=== PATIENT | male | born 1975 | race Caucasian/White ===

== ENCOUNTER 2018-06-05 15:34 | Emergency (ER) | payer OTHER ==
--- NOTE | 2018-06-05 15:55 | EDPHY ---
H & P Time Seen by Provider: 06/05/18 15:41 HPI/ROS: Chief complaint. First-time seizure HPI. 42-year-old male presents emergency department with first-time seizure. Tells me got off work today and was shopping with his uncle and then apparently witnesses described a generalized tonic-clonic seizure. He has not had any recent head injury. He has had no fever cough, chest pain, shortness of breath , abdominal pain. History of alcoholism and had been drinking heavily. He tells me last drink was 2 days ago. He also tells me he did not bite his tongue. He denies other drugs ROS 10 systems were reviewed and negative with the exception of the elements mentioned in the history of present illness Past Medical/Surgical History: Dyslipidemia, alcoholism Social History: Single, daily smoker, last alcohol 2 days ago Smoking Status: Current every day smoker Physical Exam: General Appearance: Alert well-developed male mild distress. Vital signs significant for blood pressure 160/118 and heart rate 114 Eyes: Pupils equal and round no pallor or injection. ENT, no evidence of trauma to the head. Patient bit his tongue left anterior edge. Respiratory: There are no retractions, lungs are clear to auscultation. Cardiovascular: Regular rate and rhythm. Gastrointestinal: Abdomen is soft and nontender, no masses, bowel sounds normal. Neurological: Awake and alert, sensory and motor exams grossly normal. Tremulous Skin: Warm and dry, no rashes. Musculoskeletal: Neck is supple nontender. Extremities symmetrical, full range of motion. Psychiatric: Patient is oriented X 3, there is no agitation. Constitutional: Initial Vital Signs Temperature (C) 37.2 C 06/05/18 15:34 Heart Rate 138 H 06/05/18 15:34 Respiratory Rate 16 06/05/18 15:34 Blood Pressure 160/118 H 06/05/18 15:34 O2 Sat (%) 95 06/05/18 15:34 O2 Delivery Mode Room Air Allergies/Adverse Reactions: No Known Allergies Allergy (Unverified 12/06/10 08:49) Home Medications: Medication Instructions Recorded Lipitor 20 mg (RX) 09/06/13 Medical Decision Making - Diagnostics EKG Interpretation: EKG interpreted by me shows sinus tachycardia normal interval and axis. QRS is normal no significant ST elevation or depression. No arrhythmia. The rate is 112 Imaging Results: Imaging Impressions Head CT 06/05/18 16:43 Impression: 1. Accelerated atrophy for a patient of this age, progressive since the previous study in 2013, consistent with a history of chronic alcoholism. 2. There is no acute intracranial abnormality identified on this unenhanced CT evaluation. If there is further clinical concern regarding the patient's symptoms, MR imaging is suggested, if not otherwise contraindicated. Findings were discussed with RAHEEM OSUNA MD at 17:12, on 06/05/2018. Noncontrast head CT reviewed by me and discussed with Dr. Kamara shows significant atrophy but no evidence of bleeding or tumor Procedures: IV normal saline. Ativan IV for tremulousness. Seizure precautions ED Course/Re-evaluation: Patient refuses head CT. He and I discussed risks and benefits of this up and concern for intracranial tumor in bleeding for first-time seizure. He expresses understanding and agreement but declines head CT Patient refuses EKG Re-evaluation at 4:40 p.m.. Patient's parents are now here. Patient agrees to EKG and head CT. Tremulous still present but improved Re-evaluation 5:40 p.m. Patient and his family and I have discussed imaging and lab results. Discussed treatment plan including importance of follow-up and further evaluation. He expresses understanding and agreement Re-evaluation again at 7:00 p.m.. Patient is better but still somewhat tachycardic. He insists on leaving and has pulled his IV out. He is here with his parents who will stay with the patient tonight. I have encouraged the patient to return at any point. He is aware that my plan was to continue management of his alcohol withdrawal symptoms until he was much improved. He expresses understanding and agreement Differential Diagnosis: I think the patient had alcohol withdrawal seizure. None evidence of intracranial bleeding, brain tumor, arrhythmia. - Data Points Laboratory Results: Laboratory Results 06/05/18 15:47 06/05/18 15:47 06/05/18 06/05/18 15:47 15:47 WBC 9.65 10^3/uL H 10^3/uL (3.80-9.50) RBC 4.82 10^6/uL 10^6/uL (4.40-6.38) Hgb 16.0 g/dL g/dL (13.7-17.5) Hct 46.2 % % (40.0-51.0) MCV 95.9 fL fL (81.5-99.8) MCH 33.2 pg pg (27.9-34.1) MCHC 34.6 g/dL g/dL (32.4-36.7) RDW 11.8 % % (11.5-15.2) Plt Count 125 10^3/uL L 10^3/uL (150-400) MPV 10.2 fL fL (8.7-11.7) Neut % (Auto) 78.4 % H % (39.3-74.2) Lymph % (Auto) 8.6 % L % (15.0-45.0) [place] % (Auto) 11.6 % % (4.5-13.0) Eos % (Auto) 0.1 % L % (0.6-7.6) Baso % (Auto) 1.0 % % (0.3-1.7) Nucleat RBC Rel Count 0.0 % % (0.0-0.2) Absolute Neuts (auto) 7.56 10^3/uL H 10^3/uL (1.70-6.50) Absolute Lymphs (auto) 0.83 10^3/uL L 10^3/uL (1.00-3.00) Absolute Monos (auto) 1.12 10^3/uL H 10^3/uL (0.30-0.80) Absolute Eos (auto) 0.01 10^3/uL L 10^3/uL (0.03-0.40) Absolute Basos (auto) 0.10 10^3/uL 10^3/uL (0.02-0.10) Absolute Nucleated RBC 0.00 10^3/uL 10^3/uL (0-0.01) Immature Gran % 0.3 % % (0.0-1.1) Immature Gran # 0.03 10^3/uL 10^3/uL (0.00-0.10) Sodium 134 mEq/L L mEq/L (135-145) Potassium 3.4 mEq/L L mEq/L (3.5-5.2) Chloride 94 mEq/L L mEq/L (97-110) Carbon Dioxide 18 mEq/l L mEq/l (22-31) Anion Gap 22 mEq/L H mEq/L (6-14) BUN 12 mg/dL mg/dL (7-23) Creatinine 1.1 mg/dL mg/dL (0.7-1.3) Estimated GFR > 60 Glucose 153 mg/dL H mg/dL (70-100) Calcium 9.2 mg/dL mg/dL (8.5-10.4) Medications Given: Discontinued Medications Chlordiazepoxide HCl (Librium) 25 mg PO EDNOW ONE Stop: 06/05/18 16:06 Last Admin: 06/05/18 16:37 Dose: 25 mg Sodium Chloride (Ns) 1,000 mls @ 0 mls/hr IV EDNOW ONE; Wide Open PRN Reason: Protocol Stop: 06/05/18 16:05 Last Admin: 06/05/18 16:36 Dose: 1,000 mls Sodium Chloride (Ns) 1,000 mls @ 0 mls/hr IV EDNOW ONE; Wide Open PRN Reason: Protocol Stop: 06/05/18 16:42 Last Admin: 06/05/18 16:58 Dose: 1,000 mls Sodium Chloride (Ns) 1,000 mls @ 0 mls/hr IV EDNOW ONE; Wide Open PRN Reason: Protocol Stop: 06/05/18 17:51 Last Admin: 06/05/18 18:10 Dose: 1,000 mls Lorazepam (Ativan Injection) 1 mg IVP EDNOW ONE Stop: 06/05/18 16:06 Last Admin: 06/05/18 16:35 Dose: 1 mg Lorazepam (Ativan Injection) 1 mg IVP EDNOW ONE Stop: 06/05/18 16:37 Last Admin: 06/05/18 16:58 Dose: 1 mg Lorazepam (Ativan Injection) 1 mg IVP EDNOW ONE Stop: 06/05/18 17:51 Last Admin: 06/05/18 18:10 Dose: 1 mg Departure - Departure Disposition: Home, Routine, Self-Care Clinical Impression: Alcohol abuse, Seizure Condition: Fair Instructions: Alcohol Withdrawal (ED) Additional Instructions: Return tonight for worsening symptoms or another seizure. No driving or other dangerous activity until evaluated by Neurology Recheck tomorrow in the ER if not improved Refrain from drinking further alcohol Referrals: Patient,NotPresent [Unknown] - As per Instructions Artemio Coates MD [Medical Doctor] - As per Instructions
[2018-06-05] MEDS ORDERED: NS 1,000 ML IV ONE ×3 (16:04→17:50)
[2018-06-05] MEDS ORDERED: LORazepam 2 MG/ML INJ IVP ONE ×3 (16:05→17:50)
[2018-06-05] MEDS ORDERED: chlordiazePOXIDE 25 MG CAP PO ONE (16:05)
[2018-06-05 16:19] LABS: PLATELET COUNT 125 10^3/uL (150-400)
[2018-06-05] MEDS ORDERED: LORazepam 2 MG/ML INJ IVP PRN (16:35)
[2018-06-05] MEDS ORDERED: LORazepam 1 MG TAB PO PRN (16:35)
[2018-06-05 19:18] VITALS: BP 149/116
--- NOTE | 2018-06-05 19:43 | CPEKG ---
Test Reason : OPEN Blood Pressure : / mmHG Vent. Rate : 112 BPM Atrial Rate : 112 BPM P-R Int : 143 ms QRS Dur : 084 ms QT Int : 332 ms P-R-T Axes : 064 030 033 degrees QTc Int : 453 ms Sinus tachycardia Confirmed by Johan Potts ([id number]) on 06/05/2018 7:42:38 PM Referred By: Confirmed By:Johan Potts
== END 2018-06-05 19:37 | disposition home or self-care (01) ==
LOC: EDUNIT#
DX: R56.9 Unspecified convulsions (principal); F10.10 Alcohol abuse, uncomplicated
CPT/HCPCS: 96374; J2060